=== PATIENT | male | born 1995 | race Caucasian/White ===

== ENCOUNTER 2017-03-27 14:12 | Emergency (ER) | payer OTHER ==
[~2017-03-27] VITALS: Ht 165.1 cm; Wt 106.0 kg
[2017-03-27] MEDS ORDERED: FIORICET 50-301 EAC1 PO (18:44)
[2017-03-27 19:01] VITALS: BP 125/76
== END 2017-03-27 19:02 | disposition home or self-care (01) ==
LOC: EME 14:12
DX: S06.0X0A Concussion without loss of consciousness, initial encounter (principal); W18.39XA Other fall on same level, initial encounter; Y93.71 Activity, boxing
CPT/HCPCS: 99281; 99283